=== PATIENT | female | born 1980 | race Caucasian/White ===

== ENCOUNTER 2019-08-04 05:50 | Day surgery (SDC) | payer BC ==
[~2019-08-04] VITALS: Ht 195.6 cm; Wt 68.0 kg
[2019-08-04] MEDS ORDERED: CEFAZOLIN 2 GM IVPB PREMIX 50 ML IV ONE (07:00)
[2019-08-04] MEDS ORDERED: ONDANSETRON HCL 4 MG/2 ML VIAL IVP ONE (07:44)
[2019-08-04] MEDS ORDERED: LR 1,000 ML IV.SOLN IV ONE (07:44)
[2019-08-04] MEDS ORDERED: DEXAMETHASONE SOD PHOSPHATE 4 MG/ML VIAL IVP ONE (07:44)
[2019-08-04] MEDS ORDERED: PROPOFOL 200MG/ 20ML VIAL (DIPRIVAN) IV ONE (07:44)
[2019-08-04] MEDS ORDERED: DESFLURANE 15 MIN GAS INH ONE (07:44)
[2019-08-04] MEDS ORDERED: fentaNYL CITRATE/PF 100 MCG/2 ML AMP IVP ONE (07:44)
[2019-08-04] MEDS ORDERED: METOCLOPRAMIDE HCL 10 MG/2 ML VIAL IVP ONE (07:44)
[2019-08-04] MEDS ORDERED: HYDROmorphone 1 MG INJ. 1 MG/ML AMPUL IVP PRN ×2 (07:45)
[2019-08-04] MEDS ORDERED: ONDANSETRON HCL 4 MG/2 ML VIAL IVP PRN ×2 (07:45→08:30)
[2019-08-04] MEDS ORDERED: OXYCODONE/ACETAMINOPHEN 5-325 TABLET PO PRN (08:30)
[2019-08-04] MEDS ORDERED: HYDROcodone/ACETAMIN 5-325 MG TAB (NORCO/ VICODIN) PO PRN (08:30)
[2019-08-04] MEDS ORDERED: KETOROLAC TROMETHAMINE 30 MG VIAL IVP ONE (08:30)
[2019-08-04] MEDS ORDERED: KETOROLAC TROMETHAMINE 30 MG VIAL ONE (08:43)
[2019-08-04] MEDS ORDERED: HYDROmorphone 1 MG INJ. 1 MG/ML AMPUL ONE (08:51)
[2019-08-04] MEDS ORDERED: IBUPROFEN 800 MG TABLET PO SCH (09:45)
[2019-08-04 11:18] VITALS: BP_SYST 122
== END 2019-08-04 10:25 | disposition home or self-care (01) ==
LOC: SMU 05:50 → SDS 05:50
PROVIDERS: ATTEND Specialist
DX: N92.0 Excessive and frequent menstruation with regular cycle (principal); N94.6 Dysmenorrhea, unspecified; H81.09 Meniere's disease, unspecified ear
CPT/HCPCS: 58563; 88305; J0690; J1100; J1170; J1885; J2405; J2704; J2765; J3010; J7120